=== PATIENT | male | born 2000 | race Caucasian/White ===

== ENCOUNTER 2022-05-02 10:44 | Emergency (ER) | payer MEDICAID ==
[~2022-05-02] VITALS: Ht 180.3 cm; Wt 90.7 kg
[2022-05-02 10:46] VITALS: BP 193/125
--- NOTE | 2022-05-02 10:51 | NUR ---
PT AMB TO BED 11.
[2022-05-02] MEDS ORDERED: KETOROLAC 30 MG/ML VIAL IVP ONE (10:55)
[2022-05-02] MEDS ORDERED: ONDANSETRON 4 MG/2 ML VIAL IVP ONE (10:55)
[2022-05-02] MEDS ORDERED: NACL 0.9% 1,000 ML IV ONE ×2 (10:55→12:25)
--- NOTE | 2022-05-02 11:05 | NUR ---
22 y/o male bib self from home, c/o n&v, body aches that started today. bs in triage was 306 at this time, pt states last dose of insulin was yesterday. a&ox4, ambulates with assist. denies cough, fever, sore throat, sob, or cp. skin pale/cool/dry. abd x4 normoactive, flat/soft/nontender. lung sounds clear bl, heart sounds even and tachy at 123 rate. pmh: dm2 nka med: insulin
--- NOTE | 2022-05-02 11:10 | NUR ---
pt states compazine and dilaudid are the only medications that work for him. ermd made aware at this time
[2022-05-02] MEDS ORDERED: diphenhydrAMINE 50 MG/ML VIAL IVP ONE (11:15)
[2022-05-02] MEDS ORDERED: PROCHLORPERAZINE 10 MG/2 ML VIAL IVP ONE (11:15)
[2022-05-02] MEDS ORDERED: MORPHINE SULFATE 4 MG/ML SYR IVP ONE (12:05)
[2022-05-02] MEDS ORDERED: IBUP-2213 PO (12:21)
[2022-05-02] MEDS ORDERED: ONDA8TAB87 PO (12:21)
[2022-05-02 14:48] VITALS: BP 141/74
--- NOTE | 2022-05-02 14:48 | NUR ---
Patient discharged with v/s stable. Written and verbal after care instructions given and explained. Patient alert, oriented and verbalized understanding of instructions. Ambulatory with steady gait. All questions addressed prior to discharge. ID band removed. Patient advised to follow up with PMD. Rx of ibuprofen, zofran (sent) given. Patient educated on indication of medication including possible reaction and side effects. Opportunity to ask questions provided and answered.
== END 2022-05-02 14:48 | disposition home or self-care (01) ==
LOC: MED 10:44
DX: R10.9 Unspecified abdominal pain (principal); R11.2 Nausea with vomiting, unspecified; R51.9 Headache, unspecified; E11.9 Type 2 diabetes mellitus without complications; I10 Essential (primary) hypertension
CPT/HCPCS: 81002; 96361; 96374; 96375; 99284; J0780; J1200; J1885; J2270; J2405